=== PATIENT | female | born 1970 | race Caucasian/White ===

== ENCOUNTER 2020-02-25 13:14 | Outpatient (CLI) | payer OTHER ==
[2020-02-25] MEDS ORDERED: MULT-252 PO (14:14)
[2020-02-29] MEDS ORDERED: LACTATED RINGERS 1,000 ML IV SCH (09:27)
[2020-02-29] MEDS ORDERED: OXYcodone/APAP 5/325MG TABLET PO PRN (09:30)
[2020-02-29] MEDS ORDERED: IBUPROFEN 600 MG TABLET PO PRN (09:30)
[2020-02-29] MEDS ORDERED: OXYcodone 5 MG/5 ML ORAL.SOL UDC PO PRN (09:30)
[2020-02-29] MEDS ORDERED: ONDANSETRON 2MG/ML, 2ML IVPush PRN (09:30)
[2020-02-29] MEDS ORDERED: PROMETHAZINE 25 MG SUPP PR ONE (09:30)
[2020-02-29] MEDS ORDERED: PLEASE ENTER HEIGHT AND WEIGHT MC SCH (10:00)
== END 2020-02-25 23:59 | disposition home or self-care (01) ==
LOC: STAR 13:14
PROVIDERS: ATTEND Obstetrics & Gynecology Female Pelvic Medicine and Reconstructive Surgery
DX: Z11.59 Encounter for screening for other viral diseases (principal)
CPT/HCPCS: U0001-CS

== ENCOUNTER 2020-02-29 05:39 | Day surgery (SDC) | payer OTHER ==
[~2020-02-29] VITALS: Ht 165.1 cm; Wt 58.9 kg
[~2020-02-29 05:39] MED LIST: MULT-252 PO
[2020-02-29] MEDS ORDERED: LACTATED RINGERS 1,000 ML IV SCH ×2 (05:59→09:46)
[2020-02-29 06:00] VITALS: BP 124/85
[2020-02-29] MEDS ORDERED: CHLORHEXIDINE 15 ML UDC MM ONE (06:00)
[2020-02-29] MEDS ORDERED: MIDAZOLAM 1 MG/ML, 2ML ONE (06:40)
[2020-02-29] MEDS ORDERED: FENTANYL PF 100 MCG/2ML ONE ×2 (06:40→09:32)
[2020-02-29] MEDS ORDERED: INDIGO CARMINE 0.8%, 5ML ONE (06:43)
[2020-02-29] MEDS ORDERED: BUPIVACAINE/PF-EPI 0.25% 1:200K ONE (06:43)
[2020-02-29] MEDS ORDERED: ACETAMINOPHEN 500 MG TABLET PO ONE (07:00)
[2020-02-29] MEDS ORDERED: SCOPOLAMINE 1MG PATCH TD SCH (07:00)
[2020-02-29] MEDS ORDERED: HYDROmorphone 1 MG/ML, 1ML INJ IVPush PRN (07:30)
[2020-02-29] MEDS ORDERED: PROMETHAZINE 25 MG/ML, 1ML IVPush PRN (07:30)
[2020-02-29] MEDS ORDERED: OXYcodone 5 MG/5 ML ORAL.SOL UDC PO PRN ×2 (07:30→10:00)
[2020-02-29] MEDS ORDERED: MEPERIDINE/PF 25MG/0.5ML IVPush PRN (07:30)
[2020-02-29] MEDS ORDERED: KETOROLAC 30 MG/1 ML ONE (07:35)
[2020-02-29] MEDS ORDERED: LIDOCAINE-MPF 2% ,5ML ONE (07:35)
[2020-02-29] MEDS ORDERED: SUGAMMADEX 200 MG/2 ML IVPush ONE (07:35)
[2020-02-29] MEDS ORDERED: EPHEDRINE 50 MG/ML, 1ML ONE (07:35)
[2020-02-29] MEDS ORDERED: PROPOFOL 10 MG/ML, 20ML ONE (07:59)
[2020-02-29] MEDS ORDERED: ONDANSETRON 2MG/ML, 2ML ONE (07:59)
[2020-02-29] MEDS ORDERED: ROCURONIUM 10MG/ML,5ML ONE (07:59)
[2020-02-29] MEDS ORDERED: CEFAZOLIN 1,000 MG ONE (07:59)
[2020-02-29] MEDS ORDERED: SUCCINYLCHOLINE 20 MG/ML, 10ML ONE (07:59)
[2020-02-29] MEDS ORDERED: NEOSTIGMINE 1 MG/ML, 10ML ONE (07:59)
[2020-02-29] MEDS ORDERED: GLYCOPYRROLATE 0.2MG/1ML, 5ML ONE (07:59)
[2020-02-29] MEDS ORDERED: DEXAMETHASONE 4 MG/ML, 1ML ONE (07:59)
[2020-02-29] MEDS ORDERED: OXYcodone 5 MG/5 ML ORAL.SOL UDC ONE (09:32)
[2020-02-29] MEDS: FENTANYL PF 100 MCG/2ML IV PRN ×4 (09:37→10:07)
[2020-02-29] MEDS ORDERED: ONDANSETRON 2MG/ML, 2ML IVPush PRN (10:00)
[2020-02-29] MEDS ORDERED: PROMETHAZINE 25 MG SUPP PR ONE (10:00)
[2020-02-29] MEDS ORDERED: OXYcodone/APAP 5/325MG TABLET PO PRN (10:00)
[2020-02-29] MEDS ORDERED: IBUPROFEN 600 MG TABLET PO SCH (11:00)
== END 2020-02-29 13:10 | disposition home or self-care (01) ==
LOC: OUT 05:39
PROVIDERS: ATTEND Obstetrics & Gynecology Female Pelvic Medicine and Reconstructive Surgery
DX: D25.9 Leiomyoma of uterus, unspecified (principal); Z11.59 Encounter for screening for other viral diseases; N93.8 Other specified abnormal uterine and vaginal bleeding; R35.0 Frequency of micturition; Z79.899 Other long term (current) drug therapy
CPT/HCPCS: 58552; 81025; 88307; J0330; J0690; J1100; J1885; J2250; J2405; J2704; J2710; J3010; J7120; S2900; U0001